=== PATIENT | female | born 1945 | race Caucasian/White ===

== ENCOUNTER → 2016-10-28 | Outpatient (CLI) | payer MEDICARE, OTHER | LOC: LAB 09:29 | PROVIDERS: ATTEND Family Medicine | DX: R10.31 Right lower quadrant pain (principal); R31.9 Hematuria, unspecified; N13.2 Hydronephrosis with renal and ureteral calculous obstruction | CPT/HCPCS: 74176 ==

== ENCOUNTER 2016-11-22 02:39 | Emergency (ER) | payer MEDICARE, OTHER ==
[~2016-11-22] VITALS: Ht 162.6 cm; Wt 65.0 kg
[2016-11-22] MEDS ORDERED: SODIUM CHLORIDE 250 ML IV PRN (02:55)
[2016-11-22] MEDS ORDERED: SODIUM CHLORIDE FLUSH 3 ML SYR IV PRN (02:55)
[2016-11-22] MEDS ORDERED: SODIUM CHLORIDE FLUSH 10 ML SYR IV PRN (02:55)
[2016-11-22] MEDS ORDERED: morphine INJ 4 MG/ML 1 ML SYRINGE IV PRN (02:55)
[2016-11-22 03:33] LABS: BASOPHILS % (AUTO) 0 % (0-2); EOSINOPHILS # (AUTO) 0.1 10^3uL; EOSINOPHILS % (AUTO) 1 % (0-4); LYMPHOCYTES # (AUTO) 0.6 X10^3; MEAN CORPUSCULAR HEMOGLOBIN 31.1 PG (26.0-34.0); MEAN CORPUSCULAR HGB CONC 34.9 g/dL (31.0-37.0); MEAN CORPUSCULAR VOLUME 89 FL (80-100); MEAN PLATELET VOLUME 8.8 FL (6.0-9.5); MONOCYTES # (AUTO) 0.5 X10^3; MONOCYTES % (AUTO) 11 % (3-11); NEUTROPHILS # (AUTO) 3.4 X10^3; NEUTROPHILS % (AUTO) 75 % (51-67); PLATELET COUNT 162 10^3uL (150-450)
[2016-11-22 03:41] LABS: ALBUMIN 3.4 g/dL (3.4-5.0); ALKALINE PHOSPHATASE 139 U/L (38-126); BUN/CREATININE RATIO 17 (10-20); CALCULATED IONIZED CALCIUM 4.6 mg/dL (3.8-4.6); CREATINE KINASE 44 U/L (30-135); TOTAL PROTEIN 7.4 g/dL (6.4-8.5)
--- NOTE | 2016-11-22 04:08 | NUR ---
REMOVED SATURATED DRSG FROM LEFT FLANK AREA AND REAPPLIED ABD DRESSINGS AND 4X4. COVERED SITE WITH FOAM TAPE. MADE AWARE. PT TOLERATED PROCEDURE WELL.
--- NOTE | 2016-11-22 04:14 | NUR ---
OKAYED FOR LEG BAG TO BE CHANGED TO LARGER GRAVITY BAG TO HELP FACILITATE DRAINAGE.
[2016-11-22] MEDS ORDERED: POTASSIUM CHLORIDE ER 20 MEQ TABLET PO ONE (04:20)
[2016-11-22 06:59] VITALS: BP 120/72
== END 2016-11-22 04:35 | disposition home or self-care (01) ==
LOC: ED 02:41
DX: R00.0 Tachycardia, unspecified (principal); E87.6 Hypokalemia; R79.89 Other specified abnormal findings of blood chemistry
CPT/HCPCS: 36415; 71010; 80053; 82550; 82553; 84439; 84443; 84484; 85025; 85610; 85730; 93005; 99285; A9270; 93010; 99284

== ENCOUNTER 2016-11-23 16:32 | Emergency (ER) | payer MEDICARE, OTHER ==
[~2016-11-23] VITALS: Ht 162.6 cm; Wt 64.0 kg
--- NOTE | 2016-11-23 17:04 | NUR ---
UNKNOWN DRAIN SUTURED IN PLACE & CONNECTED TO ZAVALA BAG. LOOKS LIKE IT COULD BE A ZAVALA CATHETER SUTURED IN PLACE ON LT LOWER BACK. CL
[2016-11-23 17:33] VITALS: BP 126/56
== END 2016-11-23 17:31 | disposition home or self-care (01) ==
LOC: ED 16:35
DX: Z43.6 Encounter for attention to other artificial openings of urinary tract (principal)
CPT/HCPCS: 99281; 99283

== ENCOUNTER 2017-01-05 21:43 | Emergency (ER) | payer MEDICARE, OTHER ==
[~2017-01-05] VITALS: Ht 162.6 cm; Wt 61.4 kg
[~2017-01-05 21:43] MED LIST: GBPN100C PO; KCL20TCR PO; LEVO500T16 PO; METH4TAB27 PO; POTA99TA16 PO; TRAM-291ED PO
[2017-01-05] MEDS ORDERED: ONDANSETRON 2 MG/ML (Z0FRAN) 2 ML VIAL IV ONE (23:00)
[2017-01-05] MEDS ORDERED: cefTRIAXone SODIUM 1,000 MG in SODIUM CHLORIDE 50 ML IV ONE (23:00)
[2017-01-05] MEDS ORDERED: SODIUM CHLORIDE FLUSH 10 ML SYR IV PRN (23:00)
[2017-01-05] MEDS ORDERED: KETOROLAC 30 MG/ML (TORADOL) 1 ML VIAL IV ONE (23:00)
[2017-01-05] MEDS ORDERED: SODIUM CHLORIDE FLUSH 3 ML SYR IV ONE (23:00)
[2017-01-05 23:19] LABS: MEAN CORPUSCULAR HEMOGLOBIN 30.3 PG (26.0-34.0); MEAN CORPUSCULAR HGB CONC 33.9 g/dL (31.0-37.0); MEAN CORPUSCULAR VOLUME 89 FL (80-100); MEAN PLATELET VOLUME 9.1 FL (6.0-9.5); PLATELET COUNT 147 10^3uL (150-450); WHITE BLOOD COUNT 3.96 10^3uL (4.0-11.0)
[2017-01-05 23:28] LABS: ALBUMIN 3.5 g/dL (3.4-5.0); ANION GAP 17.6 MEQ/L (3-15); CALCULATED IONIZED CALCIUM 4.4 mg/dL (3.8-4.6); TOTAL PROTEIN 7.7 g/dL (6.4-8.5)
[2017-01-05 23:45] LABS: BILIRUBIN,URINE Negative (Negative); COLOR,URINE Yellow; GLUCOSE, URINE (UA) Negative (Negative); LEUKOCYTE ESTERASE ,URINE 3+ (Negative); PH,URINE 7.5 (5.0 - 8.0); UROBILINOGEN,URINE 0.2 mg/dL (0.2-1.0)
[2017-01-05 23:53] LABS: BAND NEUTROPHILS % 10 % (0-6); EOSINOPHILS % 0 % (0-4); LYMPHOCYTES # 0.3 #; MONOCYTES # 0.1 #; MONOCYTES % 2 % (3-11); SEGMENTED NEUTROPHILS % 81 % (51-67); TOTAL CELLS COUNTED 100
[2017-01-05 23:54] LABS: ANISOCYTOSIS SLIGHT; HYPOCHROMASIA SLIGHT; POIKILOCYTOSIS SLIGHT; RBC MORPH SEE REFERENCE (NORMAL)
[2017-01-05 23:58] LABS: CLARITY,URINE Slightly Cloudy
--- NOTE | 2017-01-06 00:15 | NUR ---
Yen powell in [facility] - 01/06/17 at 0718 by [id number] Pt heart responded momentarily with the shock, and was back up to 180's.
[2017-01-06 00:35] LABS: RBC,URINE 20-50 /HPF; URINE CENTRIFUGED VOLUME <10mL Unspun
[2017-01-06] MEDS ORDERED: NS IV 500 ML 500 ML IV SCH (00:50)
--- NOTE | 2017-01-06 00:50 | NUR ---
Pt's monitor alarming, went in to check on pt, noted that her cardiac rythym has changed, pt is now in either a SVT or AFib with RVR, Dr. Duvall notified, and an EKG was gotten.
[2017-01-06] MEDS ORDERED: fentaNYL 100 MCG/2 ML VIAL IV ONE (00:55)
[2017-01-06] MEDS ORDERED: MIDAZOLAM 2 MG/2 ML (VERSED) VIAL IV ONE (00:55)
--- NOTE | 2017-01-06 00:55 | NUR ---
Noted pt's EKG shows A-Fib with RVR, Dr. Duvall ordering some medications, Radha HERNANDEZ starts a 2nd IV site
[2017-01-06] MEDS ORDERED: DILTIAZEM 25 MG/5 ML (CARDIZEM) VIAL ONE (00:59)
--- NOTE | 2017-01-06 01:00 | NUR ---
NS 2000cc hung to each IV site per verbal order of DR Duvall.
--- NOTE | 2017-01-06 01:00 | NUR ---
Pt placed on monitor with fast patches on
[2017-01-06] MEDS ORDERED: SULF1TAB34 PO (01:08)
--- NOTE | 2017-01-06 01:12 | NUR ---
Dr. Duvall wants to cardiovert pt, pt given Versed 2mg, and Fentanyl 100 mg IV, pt shocked 100 joules synchronized.
--- NOTE | 2017-01-06 01:13 | NUR ---
Noted that pt's heart responded briefly to the shock, but HR back up to 180's
--- NOTE | 2017-01-06 01:14 | NUR ---
Pt was given a 2nd synchronized shock of 100 joules, pt's heart responded temporarily and once again the HR 170's.
[2017-01-06] MEDS ORDERED: DIGOXIN 0.25 MG/ML (LANOXIN) 2 ML AMP ONE (01:17)
--- NOTE | 2017-01-06 01:19 | NUR ---
Pt given 0.5mg of Digoxin, per Dr. Duvall verbal order.
--- NOTE | 2017-01-06 01:28 | NUR ---
Pt given Cardizem 10mg IV per Verbal Order Dr. Duvall in her left forearm
--- NOTE | 2017-01-06 01:36 | NUR ---
Pt given a 2nd dose of Cardizem 10mg IV per VO DR. Duvall.
--- NOTE | 2017-01-06 01:50 | NUR ---
Report called to [facility]. EMS here to get pt.
--- NOTE | 2017-01-06 02:25 | NUR ---
Pt sent to [facility] per [facility]
[2017-01-06 02:34] VITALS: BP 87/37
--- NOTE | 2017-01-06 08:38 | Diagnostic Imaging Report ---
INDICATION: Cough and fever. Frontal chest obtained at 11:39 p.m. Heart and mediastinal silhouette are normal in appearance. The lungs are clear. There is no pneumothorax or pleural fluid. IMPRESSION: No acute process in the chest. Dictated by: Dictated on workstation # [id number]
== END 2017-01-06 01:25 | disposition short-term general hospital (02) ==
LOC: ED 21:44
DX: J11.1 Influenza due to unidentified influenza virus with other respiratory manifestations (principal); I48.91 Unspecified atrial fibrillation; N39.0 Urinary tract infection, site not specified
CPT/HCPCS: 36415; 71010; 80053; 81003; 81015; 83605; 85025; 86140; 87040; 87088; 87486; 87581; 87633; 87798; 93005; 96365; 96375; 99285; J0696; J1160; J1885; J2250; J2405; J3010; J7030; 93010; 99284

== ENCOUNTER → 2017-01-06 | Outpatient (CLI) | payer MEDICARE, OTHER ==
[~2017-01-06] MED LIST changes: +SULF1TAB34 PO
== END ==
LOC: EMS 01:59
PROVIDERS: ATTEND Internal Medicine Cardiovascular Disease
DX: I48.91 Unspecified atrial fibrillation (principal); I95.9 Hypotension, unspecified; R07.9 Chest pain, unspecified; J11.1 Influenza due to unidentified influenza virus with other respiratory manifestations; N39.0 Urinary tract infection, site not specified

== ENCOUNTER → 2017-02-09 | Outpatient (CLI) | payer MEDICARE, OTHER ==
[~2017-02-09] MED LIST changes: +AC500T PO; +AMIO200T2 PO; +ASPI-860 PO; +GBPN300C PO; +HYDR-3702 PO; +LVF500T PO
--- NOTE | 2017-02-09 14:52 | Diagnostic Imaging Report ---
INDICATION: History of kidney stones, preoperative evaluation. COMPARISON STUDY: CT scan from October 28. FINDINGS: Levee Superintendent view of the abdomen demonstrates interval placement of a left ureteral stent. Calcification overlying the left ureter is no longer identified. Calcification overlying the lower pole of the left kidney is much smaller, measures approximately 4.8 mm. Several calcifications overlie the region of the right kidney measuring up to 2.3 cm in size. Bowel gas pattern appears normal. IMPRESSION: 1. Interval placement of a left ureteral stent. The ureteral calculi is no longer identified. The calculi in the lower pole of left kidney has decreased. 2. Several large calculi are seen overlying the right kidney, the largest one measures 2.3 cm. Dictated by: Dictated on workstation # [id number]
== END ==
LOC: RAD 13:43
PROVIDERS: ATTEND Urology
DX: N20.0 Calculus of kidney (principal)
CPT/HCPCS: 74000